=== PATIENT | male | born 2000 | race Caucasian/White ===

== ENCOUNTER 2019-11-04 02:41 | Emergency (ER) | payer OTHER ==
[~2019-11-04] VITALS: Ht 182.9 cm; Wt 74.8 kg
[2019-11-04] MEDS ORDERED: MOXIFLOXACIN3 ML OPHTHALMIC (03:54)
[2019-11-04] MEDS ORDERED: NORCO 5-325 TA1 EAC1 PO (03:55)
[2019-11-04 04:48] VITALS: BP 120/65
== END 2019-11-04 04:49 | disposition home or self-care (01) ==
LOC: ER 02:41
DX: T15.82XA Foreign body in other and multiple parts of external eye, left eye, initial encounter (principal); T15.81XA Foreign body in other and multiple parts of external eye, right eye, initial encounter

== ENCOUNTER 2021-01-11 07:47 | Emergency (ER) | payer OTHER ==
[~2021-01-11] VITALS: Ht 182.9 cm; Wt 72.6 kg
[~2021-01-11 07:47] MED LIST: MOXIFLOXACIN3 ML OPHTHALMIC; NORCO 5-325 TA1 EAC1 PO
[2021-01-11 08:59] LABS: ABSOLUTE NEUTROPHILS 16.9 thou/uL (1.4-8.2); BASOPHILS 0.2 % (0.0-2.0); EOSINOPHILS 0.3 % (0.0-3.0); HEMATOCRIT 49.4 % (42.0-52.0); HEMOGLOBIN 17.2 gm/dL (14.0-18.0); LYMPHOCYTES 5.6 % (24.0-44.0); MCH 29.8 pg (26.0-34.0); MCHC 34.8 g/dL (28.0-37.0); MCV 85.7 fL (80.0-100.0); MONOCYTES 6.5 % (1.0-8.0); PLATELET COUNT 270 thou/uL (150-400); POLYS 87.4 % (36.0-66.0); RBC 5.76 mil/uL (4.50-6.00); RDW 13.3 % (10.5-14.5); WBC 19.4 thou/uL (4.0-11.0)
[2021-01-11 09:09] LABS: CALCIUM 9.8 mg/dL (8.5-10.1); CREATININE 1.3 mg/dL (0.7-1.3); POTASSIUM 3.2 mmol/L (3.5-5.1)
[2021-01-11 09:15] LABS: ALBUMIN 5.2 g/dL (3.4-5.0); DIRECT BILIRUBIN 0.2 mg/dL (<0.1-0.2); TOTAL BILIRUBIN 1.5 mg/dL (0.2-1.0); TOTAL PROTEIN 8.9 g/dL (6.4-8.2)
[2021-01-11] MEDS ORDERED: ONDANSETRON ODT8 MG PO (10:34)
[2021-01-11] MEDS ORDERED: LANSOPRAZOLE30 MG PO (10:35)
[2021-01-11] MEDS ORDERED: LEXAPRO 10 MG T10 M1 PO (10:35)
[2021-01-11] MEDS ORDERED: HYDROXYZINE HCL25 M2 PO (10:35)
[2021-01-11] MEDS ORDERED: METOCLOPRAMIDE10 M1 PO (10:36)
[2021-01-11 10:43] LABS: URINE BILIRUBIN NEGATIVE (Negative); URINE BLOOD NEGATIVE (Negative); URINE CLARITY CLEAR; URINE COLOR YELLOW; URINE GLUCOSE-RANDOM* NEGATIVE (Negative); URINE KETONES 3+ (Negative); URINE LEUKOCYTES-REFLEX NEGATIVE (Negative); URINE NITRITE-REFLEX NEGATIVE (Negative); URINE PROTEIN (DIPSTICK) NEGATIVE (Negative)
[2021-01-11] MEDS ORDERED: BENTYL 10 MG CA10 M1 PO (10:46)
[2021-01-11] MEDS ORDERED: ATIVAN1 M1 PO (10:46)
[2021-01-11] MEDS ORDERED: PHENERGAN 25 MG25 M1 PO (10:46)
[2021-01-11] MEDS ORDERED: CIPRO500 M1 PO (10:46)
[2021-01-11 10:49] LABS: URINE REDUCING SUBSTANCE NEGATIVE
[2021-01-11 10:50] VITALS: BP 125/63
== END 2021-01-11 10:50 | disposition home or self-care (01) ==
LOC: ER 07:47
PROVIDERS: Emergency Medicine
DX: R10.13 Epigastric pain (principal); R11.2 Nausea with vomiting, unspecified; Z79.899 Other long term (current) drug therapy